=== PATIENT | male | born 1985 | race Caucasian/White ===

== ENCOUNTER 2017-04-17 04:28 | Emergency (ER) | payer OTHER ==
[~2017-04-17] VITALS: Ht 193 cm; Wt 88.6 kg
[2017-04-17 04:30] VITALS: BP 130/81; PULSE 84; RESP 16; O2SAT 97
--- NOTE | 2017-04-17 04:51 | ED.REPORT ---
HPI-Extremity Problem Lower Date of Service Apr 17, 2017 ED Provider: Dr. Hunter Reyes M.D. The patient is a healthy 31 year old male who presents to the ED with a left knee injury onset just before 0200 this evening, while at work in this ED. 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 The patient denies additional injury/trauma or other symptoms. He has applied ice with no relief. Nursing Notes Stated Complaint: L KNEE PAIN Chief Complaint: Extremity Trauma Nursing Notes Reviewed: Yes Allergies: Uncoded Allergies: BEE VENOM (Allergy, Unknown, 12/24/15) Scheduled PRN Ibuprofen (Ibuprofen) 800 Mg Tablet 800 MG PO TID PRN PRN For Pain General Time Seen by MD: 04:50 Chief Complaint Knee injury left Hx Obtained From: Patient Arrived By: Walk-in Onset Occurred: 1 - 4 hours ago Symptom Duration: Since onset Context: Occurred at: Workplace Location: : Knee left Quality: Painful Severity: Current: Moderate Severity: Maximum: Moderate Pertinent Negative: Relieved by nothing Immunizations: Tetanus up to date Recent Healthcare: No recent doctor visit Past Medical History Past Medical History None reported Past Surgical History None reported Smoking History Never Smoker Occupation Data Management Consultant in ER at [employer] Ambulatory Status Independent Review of Systems Constitutional: Denies: Fever Musculoskeletal: Reports: Joint pain (Left Knee) Complete sys rev & neg: except as marked. Respiratory: Denies: Non-productive cough, Shortness of breath GI: Denies: Diarrhea, Vomiting Physical Exam Initial Vital Signs Vital Signs (First) Date Time Temp Pulse Resp B/P Pulse Ox O2 Delivery O2 Flow Rate FiO2 04/17/17 04:30 36.7 84 16 130/81 97 Room Air Initial VS: Reviewed Head / Eyes: Atraumatic, Normocephalic ENT: Conjunctiva normal, No scleral icterus Neck: Supple, Full range of motion Skin: Warm, Dry, No cyanosis Neurologic: Alert, Oriented, Nonfocal Psychiatric: Mood/affect normal, Behavior normal, Normal thought content Lower Extremity / Pelvis / MS: Full range of motion, Neurologic intact, Vascular intact Left Knee: Positive: Tenderness present... (Anterior medial joint line) No joint effusion No crepitus General/Constitutional: Awake, Alert, No acute distress Interpretation & Diagnostics X-Ray Interpretation Xray Interpretation: Negative Study Performed: 3 View X-Ray Ordered: Knee left Interpretation / Wet Read by: Wet read ED physician Re-Eval/Medical Decision Med Decision/Clinical Course 31-year-old with knee pain medially after twisting injury while subduing a combative patient. He has no obvious joint effusion, no limitation or range of motion, but tenderness to palpation. May have "mild anterior horn medial meniscus injury. Pain appears to be awful medial collateral ligament and not likely ligament strain. Ibuprofen and ice elevation and rest follow-up with PCP. Re-Evaluation/Progress : Time of Eval: 05:27 Patient Status: Condition improved Re-Evaluation/Progress Note: Discussed with patient x-ray results, diagnosis, and plan for discharge. Follow-up and return to the ER instructions given. Patient agrees with plan for care and all questions were addressed. Counseled Regarding: Diagnosis, Need for follow-up, When/why to return to ED Discharge & Departure Impression: Primary Impression: Knee sprain Encounter type: initial encounter Involved ligament of knee: unspecified ligament Laterality: left Qualified Code: S83.92XA - Sprain of unspecified site of left knee, initial encounter Additional Impression: Contusion, knee Encounter type: initial encounter Laterality: left Qualified Code: S80.02XA - Contusion of left knee, initial encounter Disposition: Home Discharge Condition All VS Reviewed: Yes Condition: Improved Patient Instructions: Contusion in Adults (ED), Knee Sprain (ED) Additional Instructions: Ibuprofen 800 mg three times daily. Ice frequently first twenty-four hours. Follow-up with your doctor in the office. Referrals: [facility] (PCP) Scribe Attestation Portions of this note were transcribed by Belia Munoz. I, Dr. Reyes, personally performed the history, physical exam, and medical decision-making; I reviewed and confirmed the accuracy of the information in the transcribed note. Signed by: Keren Gonsales, 04/17/2017, 05:55 copies to: [facility] Hunter Reyes MD Apr 17, 2017 04:51 BELIA MUNOZ Apr 17, 2017 05:10
[2017-04-17] MEDS ORDERED: IBUP800T28 PO (05:17)
--- NOTE | 2017-04-17 07:32 | DRSVH ---
PROCEDURE: X-RAY LEFT KNEE, THREE VIEWS ([id number]) INDICATIONS: 31 year-old male with left knee pain. TECHNIQUE: 3 views of the knee were acquired. COMPARISON: None. FINDINGS: Bones: No fractures or dislocations. No suspicious bony lesions. Soft tissues: No joint effusion. No suspicious soft tissue calcifications. IMPRESSION: No radiographic explanation for left knee pain. Dictated by: Aravind Jackson M.D. on 04/17/2017 at 7:30 Approved by: Aravind Jackson M.D. on 04/17/2017 at 7:30
== END 2017-04-17 05:38 | disposition home or self-care (01) ==
LOC: SED 04:28
DX: S83.92XA Sprain of unspecified site of left knee, initial encounter (principal); S80.02XA Contusion of left knee, initial encounter; X50.1XXA Overexertion from prolonged static or awkward postures, initial encounter; Y93.89 Activity, other specified; Y92.69 Other specified industrial and construction area as the place of occurrence of the external cause; Y99.0 Civilian activity done for income or pay